=== PATIENT | male | born 1935 | race Caucasian/White ===

== ENCOUNTER 2016-04-26 13:04 | Day surgery (SDC) | payer MEDICARE, OTHER ==
[~2016-04-26] VITALS: Ht 167.6 cm; Wt 81.6 kg
[2016-04-26 14:05] VITALS: Ht 167.6 cm; Wt 81.6 kg
[2016-04-26] MEDS ORDERED: ZOLP5TAB6 PO (14:14)
[2016-04-26] MEDS ORDERED: VALS160T20 PO (14:14)
[2016-04-26] MEDS ORDERED: AMIO200T2 PO (14:14)
[2016-04-26] MEDS ORDERED: METO50TA16 PO (14:14)
[2016-04-26] MEDS ORDERED: RABE20TA5 PO (14:14)
[2016-04-26] MEDS ORDERED: SUCR1TAB56 PO (14:14)
[2016-04-26] MEDS ORDERED: PROPOFOL 40 ML ONE (15:24)
[2016-04-26] MEDS ORDERED: LIDOCAINE 2% (SDV) 5 ML INJ ONE (15:24)
[2016-04-26 15:42] VITALS: BP 186/80; PULSE 59; RESP 17
[2016-04-26 16:26] VITALS: BP 167/80; PULSE 56; RESP 18
--- NOTE | 2016-04-30 08:56 | GILP ---
DATE OF PROCEDURE: PROCEDURE: Esophagogastroduodenoscopy with biopsies. INDICATIONS: Patient is being evaluated for history of gastric CA post-radiation and chemotherapy. Here to reevaluate and stage. PREMEDICATION: Monitored anesthesia care by anesthesiologist. SURGEON: Court Corea MD. FINDINGS: Esophagus: The distal esophagus shows severe erythema, edema, and ulceration of the mucosa. Likely related to radiation injury. Stomach: Upon entrance to the stomach, air was insufflated. Retroflexion disclosed a 3-cm mass in the fundus of the stomach. Biopsies were obtained. The remainder of the stomach appears unremarkab le. Pylorus and duodenum are normal. IMPRESSION: 1. Severe ulcerated esophagitis, likely radiation-induced injury. 2. A 3-cm mass in the fundus of the stomach. Biopsies obtained. Clearly malignant appearance. PLAN: The patient will be followed up as an outpatient. Pathology will be reviewed. Question possi ble additional radiation versus other alternatives. Dictated By: COURT COREA MS/ELYSE Conf#: [id number] DID#: [id number]
== END 2016-04-26 17:38 | disposition home or self-care (01) ==
LOC: GIL 13:04
PROVIDERS: ATTEND Internal Medicine Gastroenterology
DX: C16.1 Malignant neoplasm of fundus of stomach (principal); K20.8 Other esophagitis; I10 Essential (primary) hypertension; E78.5 Hyperlipidemia, unspecified
CPT/HCPCS: 88305; 88312

== ENCOUNTER → 2016-07-24 | Outpatient (CLI) | payer MEDICARE, OTHER ==
[~2016-07-24] MED LIST: AMIO200T2 PO; METO50TA16 PO; RABE20TA5 PO; SUCR1TAB56 PO; VALS160T20 PO; ZOLP5TAB7 PO
--- NOTE | 2016-07-25 06:33 | HKNOTE ---
DATE OF SERVICE: 07/24/2016 MAIN COMPLAINT: Pain in the right knee. 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 He complains of pain in his right knee. He hit his knee many years ago while he was out sold iering (he is very vague about that). But about 2 years ago the knee pain suddenly became very mode rately increased. It is not aggravated with coughing, sneezing, or straining at stool, it is aggrav ated by walking, weightbearing, and stair climbing. He gets pain with rest. He gets pain some time of the day every day. At night the pain does seem to be worse when he is lying in bed without anyb noris to talk to. He has tried taking Zolpidem for the pain. Earlier he had operative arthroscopy on the right knee about 20 years ago, but he cannot remember if it made him sick. The patient had an open medial meniscectomy on the knee 20 years ago at a hospital in [facility]. His pain suddenly became very much worse about 6 months ago. The pain ____. The pain in the knee i s aggravated by walking, weightbearing, and stair climbing and ____. The patient sometimes gets edward n during the day, but almost always at night. He has to particularly be careful when he wakes up in the morning, he needs to wiggle his leg around before he can get his hip going without pain. PRIOR CORTISONE INTAKE: None. ALCOHOL INTAKE: None. "Only water." OTHER JOINT PROBLEMS: None. BLOOD TESTS FOR ARTHRITIS: None that he recalls. 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 The patient states that he has 4 very little grandchildren. They are his life. PAST MEDICAL HISTORY: PREVIOUS ORTHOPEDIC OPERATIONS: Right knee surgery in [place] within 20 years ago. PREVIOUS MEDICAL PROBLEMS: Hypertension, diabetes, esophageal cancer diagnosed in July 2015 which wa s treated with chemotherapy and radiation. ____ sulfa drugs. FAMILY HISTORY: Totally noncontributory. SYSTEMS REVIEW: Noncontributory. HABITS: The patient does not smoke or drink alcoholic beverages. PHYSICAL EXAMINATION: GENERAL: The patient is a rather fragile-looking, 80-year-old man. VITAL SIGNS: Height 5 feet 2 inches, weight 165 pounds. Blood pressure 128/65, temperature 98.3. GAIT: The patient walks without a walking aid. He has a marked antalgic gait and stiffness in the right leg. HIPS: Both hips have full range of motion without pain. RIGHT KNEE: Valgus alignment. Active and passive extension lacks 10 degrees. Active and passive fle xion is 105 degrees. Medial parapatellar scar of previous open surgery. The medial and lateral khloe ateral ligaments and cruciate ligaments are intact. Mynor test is negative. There is 6+ crepitus i n the knee, none in the patella. There is no effusion, tenderness, scarring, or cysts. The patella tracks normally. There is no tenderness on the articular surface of the patella or in the patellar g roove. The Q angle is normal. IMAGING: Plain x-rays of the right knee obtained today show severe degenerative osteoarthritis affe cting primarily the lateral compartment and patellofemoral joint. The medial joint ____ shows moder ate arthritis. DIAGNOSES: 1. Exceedingly severe degenerative osteoarthritis of the right knee. 2. Possible esophageal cancer. MANAGEMENT: The patient is advised that given the fact that he seems to be in reasonable health (as justin from the ____ possible esophageal cancer), he should possibly consider knee replacement surgery. However, wishes to first try conservative measures. The operation of his knee replacement surgery is discussed with him in a fair amount of detail inclu ding some of the major possible complications. The patient was given my manual titled "Arthritis of the Knee Joint" which contains information conc erning the various alternatives of treatment. It includes various forms of conservative treatment, i ncluding the use of nonsteroidal anti-inflammatory medications and their dangers. Various surgical a lternatives are discussed. The technique of total knee replacement is discussed in detail, including possible complications. Included also is a section on the possible complications of blood transfusi on, a section on postoperative precautions, and an exercise program to follow at home after total kn ee replacement. The long-term care of a total knee replacement implant is also covered in detail. Th e patient was instructed to read this manual in its entirety since it is, in and of itself, a form o f informed consent. After reading this manual, the patient will make a list of further questions phillip t may not have been covered adequately. The patient was further advised that this manual, although e xhaustive in nature, is only intended to supplement and complement a one-on-one discussion with me. Under sterile conditions, the patient was given injection of 2 mL of Kenalog and 6 mL of 2% lidocain e into the right knee, and he will be seen again as necessary for further treatment. Note that he i s also given a copy of my booklet [email or web address]. Dictated By: APRYL LUCAS/ELYSE Conf#: [id number] DID#: [id number]
--- NOTE | 2016-07-25 09:06 | RADRPT ---
PROCEDURE: XR right knee. CLINICAL INDICATION: Knee pain TECHNIQUE: AP weightbearing, lateral weightbearing and sunrise views are available for review. COMPARISON: None available FINDINGS: There is severe osteoarthrosis involving the lateral tibial femoral compartment and moderate osteoar throsis involving the patellofemoral compartment. This is associated with joint space narrowing, sub chondral sclerosis and osteophytosis. There is otherwise normal mineralization, architecture and alignment. No fractures are identified. No osseous lesions are identified. The soft tissues are unremarkable. IMPRESSION: Severe osteoarthrosis involving the lateral tibial femoral compartment and moderate osteoarthrosis i nvolving the patellofemoral compartment. RPTAT: HGDB .Mau Ventura MD, MD Date Time Electronically viewed and signed by .Mau Ventura MD, on 07/25/2016 09:06 .B/
== END | disposition home or self-care (01) ==
LOC: HKI 13:39
DX: M25.561 Pain in right knee (principal); M17.11 Unilateral primary osteoarthritis, right knee
CPT/HCPCS: 20610; 73562; G0463

== ENCOUNTER 2017-07-15 20:37 | Inpatient (IN) | END 2017-07-19 16:05 | disposition home or self-care (01) | DRG 378 ==

== ENCOUNTER 2017-10-14 15:40 | Inpatient (IN) | END 2017-11-03 21:10 | disposition EXP | DRG 356 ==